=== PATIENT | male | born 1935 | race Asian ===

== ENCOUNTER 2025-05-20 14:03 | Inpatient (IN) | payer MEDICARE, OTHER ==
[~2025-05-20] VITALS: Ht 160 cm; Wt 47.6 kg
[2025-05-20] MEDS ORDERED: IOHEXOL-350 100 ML VIAL IV ONE (14:15)
[2025-05-20] MEDS ORDERED: IV NS 0.9% 250 ML IV ONE (14:15)
[2025-05-20] MEDS: IV NS 0.9% 500 ML BAG IV ONE (14:40)
[2025-05-20 15:02] LABS: PLATELET COUNT (AUTO) 255 K/uL (150-450); RED BLOOD CELL COUNT(AUTO) 5.05 MIL/uL (4.5-6.0); RED CELL DISTRIBUTION WIDTH 15.2 % (11.5-15.0); WHITE BLOOD COUNT (AUTO) 2.9 K/uL (4.3-11.0)
[2025-05-20 15:13] LABS: INR 0.95 (0.91-1.10)
[2025-05-20 15:14] LABS: CALCIUM, SERUM 9.1 mg/dL (8.5-10.1); CREATININE 1.3 mg/dL (0.6-1.3); SODIUM SERUM 139.0 mmol/L (136-145); UREA NITROGEN, BLOOD 18.0 mg/dL (7-18)
[2025-05-20] MEDS ORDERED: METO25TA6 PO (15:40)
[2025-05-20] MEDS ORDERED: ASCO500T10 PO (15:40)
[2025-05-20] MEDS ORDERED: APIX5TAB PO (15:40)
[2025-05-20] MEDS ORDERED: MULT-213 PO (15:40)
[2025-05-20] MEDS ORDERED: ONDA8TAB65 PO (15:40)
[2025-05-20] MEDS ORDERED: BISA10SU11 RC (15:40)
[2025-05-20] MEDS ORDERED: ACET-637 PO (15:40)
[2025-05-20] MEDS ORDERED: CALC-1026 PO (15:40)
[2025-05-20] MEDS ORDERED: SENN8.6T19 PO (15:40)
[2025-05-20] MEDS ORDERED: FERR325T24 PO (15:40)
[2025-05-20] MEDS ORDERED: ACET-73 PO (15:40)
[2025-05-20] MEDS ORDERED: IPRATROPIUM NEB FS 0.5 MG/2.5 ML AMPUL.NEB ONE (16:07)
[2025-05-20] MEDS ORDERED: ALBUTEROL FS 2.5 MG/3 ML VIAL.NEB ONE (16:07)
[2025-05-20] MEDS: IPRATROPIUM NEB FS 0.5 MG/2.5 ML AMPUL.NEB NEB ONE (17:01)
[2025-05-20] MEDS: ALBUTEROL FS 2.5 MG/0.5 ML VIAL.NEB NEB ONE (17:01)
[2025-05-20 17:03] VITALS: O2SAT 94
[2025-05-20 17:13] VITALS: O2SAT 100
[2025-05-20 17:14] VITALS: O2SAT 100
[2025-05-20 17:24] VITALS: O2SAT 100
[2025-05-20] MEDS ORDERED: Z GUARD REMEDY 4 OZ OINT TP PRN (18:00)
[2025-05-20] MEDS ORDERED: MAGNESIUM HYDROXIDE 30 ML UDC PO PRN (18:00)
[2025-05-20] MEDS ORDERED: BLOOD SUGAR DIAGNOSTIC 1 EACH STRIP IN SCH (18:00)
[2025-05-20] MEDS ORDERED: ONDANSETRON HCL/PF 4 MG/2 ML VIAL IVP PRN (18:00)
[2025-05-20] MEDS ORDERED: ACETAMINOPHEN 325 MG TABLET PO PRN (18:00)
[2025-05-20] MEDS ORDERED: MAG HYDROX/AL HYDROX/SIMETH 30 ML UDC PO PRN (18:00)
[2025-05-20] MEDS ORDERED: SENNOSIDES 8.6 MG TABLET PO PRN (18:00)
[2025-05-20] MEDS ORDERED: ACETAMINOPHEN ES 500 MG TABLET PO PRN ×2 (18:00)
[2025-05-20 20:00] VITALS: BP 98/62; TEMP 98; O2SAT 98
[2025-05-20] MEDS: BLOOD SUGAR DIAGNOSTIC 1 EACH STRIP IN SCH (21:06)
[2025-05-21] VITALS: BP 90/55; TEMP 97.3; O2SAT 100
[2025-05-21 04:00] VITALS: BP 95/62; TEMP 98.1; O2SAT 97
[2025-05-21 07:14] LABS: PLATELET COUNT (AUTO) 237 K/uL (150-450); RED BLOOD CELL COUNT(AUTO) 4.25 MIL/uL (4.5-6.0); RED CELL DISTRIBUTION WIDTH 15.2 % (11.5-15.0); WHITE BLOOD COUNT (AUTO) 8.9 K/uL (4.3-11.0)
[2025-05-21 07:36] LABS: CALCIUM, SERUM 7.9 mg/dL (8.5-10.1); CREATININE 1.0 mg/dL (0.6-1.3); PHOSPHORUS 3.0 mg/dL (2.5-4.9); SODIUM SERUM 138.0 mmol/L (136-145); UREA NITROGEN, BLOOD 16.0 mg/dL (7-18)
[2025-05-21 08:00] VITALS: BP 108/76; TEMP 97.3; O2SAT 100
[2025-05-21] MEDS: APIXABAN 5 MG TABLET PO SCH (09:48)
[2025-05-21] MEDS: BISACODYL SUPP (10 MG) 10 MG/SUPP.RECT SUPP.RECT RC SCH (09:49)
[2025-05-21] MEDS: METOPROLOL TARTRATE 25 MG TABLET PO SCH (09:49)
[2025-05-21] MEDS: FERROUS SULFATE (325 MG) 325 MG/TAB TABLET PO SCH (09:49)
[2025-05-21] MEDS: CALCIUM CARBONATE (1250) 500 MG TABLET PO SCH (09:49)
[2025-05-21 12:00] VITALS: BP 90/57; TEMP 97.5; O2SAT 100
[2025-05-21 12:07] LABS: LDL 123 mg/dL (0-99)
[2025-05-21 12:20] LABS: INR 0.97 (0.91-1.10)
[2025-05-21 16:00] VITALS: BP 98/52; TEMP 97.7; O2SAT 96
[2025-05-21 20:00] VITALS: BP 104/82; TEMP 97.5; O2SAT 94
[2025-05-21] MEDS: ATORVASTATIN 40 MG TABLET PO SCH (22:21)
[2025-05-21 23:57] LABS: APPEARANCE,URINE CLEAR (CLEAR); BLOOD, URINE NEGATIVE Ery/uL (NEGATIVE); LEUKOCYTE ESTERASE ,URINE NEGATIVE (NEGATIVE); NITRITE, URINE NEGATIVE (NEGATIVE); UGLUCOSE NEGATIVE (NEGATIVE)
[2025-05-22] VITALS: BP 122/71; TEMP 97.5; O2SAT 96
[2025-05-22 00:08] LABS: AMPHETAMINE, URINE NEGATIVE (NEGATIVE); BARBITURATE, URINE NEGATIVE (NEGATIVE); BENZODIAZEPINE, URINE NEGATIVE (NEGATIVE); CANNABINOID, URINE NEGATIVE (NEGATIVE); COCCAINE, URINE NEGATIVE (NEGATIVE); OPIATE, URINE NEGATIVE (NEGATIVE)
[2025-05-22 04:00] VITALS: BP 95/75; TEMP 97.5; O2SAT 96
[2025-05-22 08:00] VITALS: BP 120/75; TEMP 98; O2SAT 99
[2025-05-22 09:02] LABS: PLATELET COUNT (AUTO) 242 K/uL (150-450); RED BLOOD CELL COUNT(AUTO) 4.72 MIL/uL (4.5-6.0); RED CELL DISTRIBUTION WIDTH 15.6 % (11.5-15.0); WHITE BLOOD COUNT (AUTO) 7.6 K/uL (4.3-11.0)
[2025-05-22 09:07] LABS: IMMUNOGLOBULIN A, SERUM 149 mg/dL (61-437); IMMUNOGLOBULIN M, SERUM 56 mg/dL (15-143)
[2025-05-22 10:07] LABS: FREE KAPPA LT CHAINS SERUM 42.2 mg/L (3.3-19.4); FREE LAMBDA LT CHAIN SERUM 34.0 mg/L (5.7-26.3); KAPPA/LAMBDA RATIO SERUM 1.24 (0.26-1.65)
[2025-05-22 11:30] VITALS: BP 99/62; TEMP 98.4; O2SAT 100
[2025-05-22 11:58] LABS: IRON, SERUM 30 ug/dl (50-175)
[2025-05-22 16:00] VITALS: BP 111/61; TEMP 98.2; O2SAT 96
[2025-05-22 20:00] VITALS: BP 99/62; TEMP 98.4; O2SAT 98
[2025-05-23] VITALS: BP 96/57; TEMP 97.9; O2SAT 98
[2025-05-23 01:07] LABS: FOLIC ACID 6.3 ng/mL (>3.0)
[2025-05-23 08:00] VITALS: BP 98/53; TEMP 97.6; O2SAT 100
[2025-05-23 08:44] VITALS: BP 98/53
== END 2025-05-23 10:45 | DRG 312 ==
LOC: ER 14:07 → TELE 17:02
PROVIDERS: ADMIT Internal Medicine; ATTEND Internal Medicine
DX: R55 Syncope and collapse (principal); C34.91 Malignant neoplasm of unspecified part of right bronchus or lung; C79.31 Secondary malignant neoplasm of brain; J91.0 Malignant pleural effusion; C34.92 Malignant neoplasm of unspecified part of left bronchus or lung; C79.51 Secondary malignant neoplasm of bone; E86.0 Dehydration; Z79.01 Long term (current) use of anticoagulants; Z86.73 Personal history of transient ischemic attack (TIA), and cerebral infarction without residual deficits; Z86.711 Personal history of pulmonary embolism; Z53.20 Procedure and treatment not carried out because of patient's decision for unspecified reasons; Z79.60 Long term (current) use of unspecified immunomodulators and immunosuppressants; I10 Essential (primary) hypertension; Z79.899 Other long term (current) drug therapy; T45.1X5A Adverse effect of antineoplastic and immunosuppressive drugs, initial encounter; Y92.9 Unspecified place or not applicable; D64.9 Anemia, unspecified
CPT/HCPCS: 36415; 70450-TC; 70496-TC; 70498-TC; 71045-TC; 80048-TC; 80061-TC; 82607-TC; 82728-TC; 82784; 82962-TC; 83540-TC; 83735-TC; 84100-TC; 84155; 84165; 84443-TC; 84484-TC; 85025-TC; 85730-TC; 86334; 87040-TC; 87081-TC; 92526; 92611; 93307-TC; 97110-TC; 97116-TC; 97530-TC; 97535-TC; G0378; J7040; J7050; Q9967